=== PATIENT | female | born 1985 | race Hispanic/Latino ===

== ENCOUNTER 2024-05-04 18:30 | Emergency (ER) | payer OTHER ==
[2024-05-04 18:58] LABS: Absolute Lymphocytes (CBC) 1.2 K/uL (0.7-4.9); Absolute Monocytes 0.3 K/uL (0.1-1.3); Absolute Neutrophil 6.2 K/uL (1.8-8.0); Basophils % 0.5 % (0-1.3); Eosinophils % 0.4 % (0-4.4); Hematocrit 30.2 % (36.0-45.0); Hemoglobin 8.9 g/dL (12.0-15.0); Lymphocytes % 15.3 % (15.3-44.8); MCH 21.8 pg (27.0-35.0); MCHC 29.4 g/dL (32.0-36.0); MCV 74.1 fL (80-100); MPV 7.6 fL (7.6-11.3); Monocytes % 3.3 % (3.3-12.3); Neutrophils % 80.5 % (41.7-73.7); Platelets 409 thou/uL (152-406); RBC Red Blood Cell Count 4.08 M/uL (3.86-4.86)
[2024-05-04] MEDS ORDERED: LORazepam 2 MG/ML VIAL ONE (18:58)
[2024-05-04] MEDS ORDERED: NA CHLORIDE 0.9% 500 ML ONE (18:59)
[2024-05-04] MEDS ORDERED: ASPIRIN 81 MG CHEWABLE TABLET ONE (18:59)
[2024-05-04 19:06] LABS: D-Dimer 0.413 FEUug/mL (0-0.500); PT Prothrombin Time 13.7 SECONDS (9.4-12.5); Protime INR 1.23
[2024-05-04 19:18] LABS: Albumin 3.6 g/dL (3.4-5.0); Albumin/Globulin Ratio 0.8 (1.1-1.8); Bilirubin Direct 0.2 mg/dL (0-0.2); Bilirubin Indirect, Calculated 0.2 mg/dL (0.2-0.8); Bilirubin Total 0.4 mg/dL (0.2-1.0); Globulin 4.5 g/dL (2.3-3.5); Magnesium 1.9 mg/dL (1.6-2.4); Protein, Total 8.1 g/dL (6.4-8.2); Troponin High Sensitivity 7.4 pg/mL (<58.9)
--- NOTE | 2024-05-04 19:41 | RAD REPORT ---
EXAMINATION: ONE VIEW CHEST XR CLINICAL INDICATION: CHEST PAIN TECHNIQUE: Frontal chest projection is submitted. Examination is limited by patient positioning and t echnique. COMPARISON: No prior exam. FINDINGS: The lungs are well inflated and clear. The heart is upper limit of normal in size. No displaced fract ures identified. IMPRESSION: No acute intrathoracic abnormalities.
--- NOTE | 2024-05-04 20:05 | RAD REPORT ---
EXAMINATION: US BILATERAL LOWER EXTREMITY VENOUS DOPPLER CLINICAL INDICATION: PAIN TECHNIQUE: Complete bilateral duplex sonography of the BILATERAL lower extremity veins was performed. The examination included compression for vein patency, color Doppler imaging and flow augmentation in response to distal compression of the distal external iliac, common femoral, femoral, popliteal, t ibial, and great and small saphenous veins. COMPARISON: No prior exam. FINDINGS: Duplex sonography testing of the veins of the BILATERAL lower extremity was performed. Color flow rogers ging shows all veins to be compressible with [id number] color filling. Pulsatile and phasic flow is present within all lower extremity deep and superficial veins examined. IMPRESSION: There is no deep vein or superficial vein thrombosis.
[2024-05-04] MEDS ORDERED: POTASSIUM 25 MEQ EFFERV TAB ONE (20:10)
[2024-05-04 20:13] LABS: Specific Gravity 1.022 (1.005-1.030)
[2024-05-04 20:16] LABS: Specific Gravity 1.022 (1.005-1.030); Sqamous Epithelial 20-50 /HPF (None Seen); Urine Bacteria <20 /HPF (<20); Urine Bilirubin NEGATIVE (Negative); Urine Blood Negative (Negative); Urine Clarity Extremely Turbid (Clear); Urine Color Yellow (Yellow); Urine Crystals Unidentified Few /HPF (None Seen); Urine Culture Reflex Order NOT NEEDED; Urine Glucose NEGATIVE (Negative); Urine Ketones NEGATIVE (Negative); Urine Microscopic Reflex YN ORDER UMIC; Urine Mucus 4+ /HPF (None Seen); Urine Nitrite 2+ (Negative); Urine Protein 1+ (Negative); Urine Urobilinogen Normal (Normal); Urine WBC >50 /HPF (<5); Urine WBC Clump Occasional /HPF (None Seen); Urine Yeast (Budding) Occasional /HPF (None Seen); Urine pH 5.5 (5.0-7.0)
[2024-05-04 20:20] LABS: Anisocytosis 1+; Blood Morphology Comment NOTED (NOT SEEN); Platelet Estimate ADEQ; Poikilocytosis 1+; White Blood Cell Scan OK (OK)
--- NOTE | 2024-05-04 20:35 | ER ---
Nurse's Notes [facility] Name: Lucio Tom Age: 38 yrs Sex: Female : 1985 Arrival Date: 05/04/2024 Time: 18:30 Bed 6 Private MD: Diagnosis: Chest pain, unspecified;Anxiety disorder, unspecified;Obesity, unspecified;Iron deficiency anemia secondary to blood loss (chronic);Iron deficiency anemia, unspecified;Hypokalemia Presentation: 05/04 18:49 Chief complaint: Patient states: Chest pressure x2 days with difficulty breathing. Pain tm6 in right arm. Hands hurting and numb. Coronavirus screen: Client denies travel out of the [place] in the last 14 days. Ebola Screen: Patient negative for fever greater than or equal to 101.5 degrees Fahrenheit, and additional compatible Ebola Virus Disease symptoms Patient denies exposure to infectious person. Patient denies travel to an Ebola-affected area in the 21 days before illness onset. No symptoms or risks identified at this time. Initial Sepsis Screen: Does the patient meet any 2 criteria? RR > 20 per min. No. Patient's initial sepsis screen is negative. Does the patient have a suspected source of infection? No. Patient's initial sepsis screen is negative. Risk Assessment: Do you want to hurt yourself or someone else? Patient reports no desire to harm self or others. Onset of symptoms was May 02, 2024. 18:49 Method Of Arrival: Ambulatory tm6 18:49 Acuity: CYN 3 tm6 Triage Assessment: 18:50 General: Appears distressed, Behavior is cooperative, anxious. Pain: Complains of pain tm6 in chest, right hand, left hand and right arm Pain currently is 4 out of 10 on a pain scale. Pain began 2-3 days ago. EENT: No signs and/or symptoms were reported regarding the EENT system. Neuro: Level of Consciousness is awake, alert, obeys commands, Oriented to person, place, time, situation. Cardiovascular: Reports chest pain, shortness of breath, since x2 days Patient's skin is warm and dry. Respiratory: Reports shortness of breath Airway is patent Respiratory effort is labored, Respiratory pattern is tachypnea. GI: No signs and/or symptoms were reported involving the gastrointestinal system. Abdomen is round. : No signs and/or symptoms were reported regarding the genitourinary system. Derm: No signs and/or symptoms reported regarding the dermatologic system. Musculoskeletal: Reports pain in chest, right hand, left hand and right arm. 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 - Infectious Disease History:: Denies. - Social history:: Smoking status: Patient denies any tobacco usage or history of. Screenin:50 [facility] ED Fall Risk Assessment (Adult) History of falling in the last 3 months, kc6 including since admission No falls in past 3 months (0 pts) Confusion or Disorientation No (0 pts) Intoxicated or Sedated No (0 pts) Impaired Gait No (0 pts) Mobility Assist Device Used No (0 pt) Altered Elimination No (0 pt) Score/Fall Risk Level 0 - 2 = Low Risk Oriented to surroundings, Maintained a safe environment, Educated pt \T\ family on fall prevention, incl call for assistance when getting out of bed. Abuse screen: Denies threats or abuse. Denies injuries from another. Nutritional screening: No deficits noted. Tuberculosis screening: No symptoms or risk factors identified. Assessment: 18:50 General: Appears in no apparent distress. uncomfortable, well groomed, well developed, kc6 Behavior is cooperative, anxious, crying, restless. Pain: Complains of pain in left hand and right hand and chest Pain does not radiate. Pain began 2-3 days ago. Is intermittent, Noted to be crying. Neuro: Level of Consciousness is awake, alert, obeys commands, Oriented to person, place, time, situation, Appropriate for age Reports paresthesias in right hand and left hand. Cardiovascular: Reports chest pain, shortness of breath, Heart tones S1 S2 present Capillary refill < 3 seconds Rhythm is sinus rhythm. Respiratory: Airway is patent Trachea midline Respiratory effort is even, with nasal flaring, Respiratory pattern is symmetrical, hyperventilation. GI: No signs and/or symptoms were reported involving the gastrointestinal system. : No signs and/or symptoms were reported regarding the genitourinary system. EENT: No signs and/or symptoms were reported regarding the EENT system. Derm: No signs and/or symptoms reported regarding the dermatologic system. Skin is intact, is healthy with good turgor, Skin is pink, warm \T\ dry. Musculoskeletal: No signs and/or symptoms reported regarding the musculoskeletal system. Circulation, motion, and sensation intact. Capillary refill < 3 seconds, Range of motion: intact in all extremities. 20:30 Reassessment: Patient appears in no apparent distress at this time. Patient and/or al5 family updated on plan of care and expected duration. Pain level reassessed. Patient is alert, oriented x 3, equal unlabored respirations, skin warm/dry/pink. states she feels a little better, feels less anxious. Vital Signs: 18:49 BP 119 / 79; Pulse 74; Resp 25; Temp 98.9(O); Pulse Ox 100% on R/A; MAP 90 mmHg; Weight tm6 114.76 kg; Height 5 ft. 5 in. ; Pain 4/10; 19:00 BP 122 / 64; Pulse 63; Resp 25; Pulse Ox 99% on R/A; al5 20:23 BP 135 / 68; Pulse 62; Resp 15; Pulse Ox 99% on R/A; al5 18:49 Body Mass Index 42.10 (114.76 kg, 165.1 cm) tm6 18:49 Pain Scale: Adult tm6 ED Course: 18:32 Patient arrived in ED. ra3 18:40 Bishnu Otero MD is Attending Physician. aundrea 18:40 Arm band placed on. EKG completed in triage. Results shown to . kc6 18:50 Triage completed. tm6 18:56 Patient has correct armband on for positive identification. Placed in gown. Bed in low kc6 position. Call light in reach. Side rails up X2. airline counter agent on. Pulse ox on. NIBP on. Door closed. Noise minimized. Lights dimmed. Pillow given. 18:56 Inserted saline lock: 18 gauge in right antecubital area, using aseptic technique. kc6 Blood collected. Flushed with 10 mL NS. Patient maintains SpO2 saturation greater than 95% on room air. 19:00 Report given to TARA Estrada \T\ TARA Kamara. kc6 19:37 XRAY Chest (1 view) In Process Unspecified. EDMS 19:57 US Extremity Venous W Compression Renaldo In Process Unspecified. EDMS 20:21 Natalie Amezcua, TARA is Primary Nurse. al5 20:29 CT Chest For PE Angio In Process Unspecified. EDMS 20:34 Ivan Cervantes MD is Referral Physician. cp 20:34 Bladimir Hurd MD is Referral Physician. cp 20:52 Provided Education on: chest pain and anxiety. cp4 20:52 No provider procedures requiring assistance completed. intact, bleeding controlled, No cp4 redness/swelling at site. Pressure dressing applied. Administered Medications: 19:04 Not Given (Physician Discretion): aspirinchewable tablet 324 mg PO once; 81 mg tablets kc6 x 4 19:05 Drug: NS 0.9% IV 500 ml 500 ml IV at 1 bolus once; to be given as a bolus over 30 kc6 minutes Volume: 500 ml; Route: IV; Rate: 1 bolus; Site: right antecubital; 20:53 Follow up: IV Status: Infusion continued cp4 19:05 Drug: Ativan IVP 1 mg IVP once Route: IVP; Site: right antecubital; kc6 20:53 Follow up: Response: No adverse reaction cp4 19:05 Drug: Aspirin PO Chewable Tablet 81 mg PO once Route: PO; kc6 20:53 Follow up: Response: No adverse reaction cp4 19:44 Not Given (Duplicate Order): potassiumeffervescent tablet 50 meq PO once; dissolve in 4 al5 ounces of water or juice 20:32 Drug: Potassium PO Effervescent Tablet 50 mEq PO once; dissolve in 4 ounces of water or al5 juice Route: PO; 20:54 Follow up: Response: No adverse reaction cp4 20:50 Not Given (Patient Refused): ativan1 mg IVP once; repeat if needed cp4 20:50 Drug: Potassium PO Effervescent Tablet 25 mEq PO once; dissolve in 4 ounces of water or cp4 juice, give prior to DC Route: PO; 20:54 Follow up: Response: No adverse reaction cp4 Medication: 20:52 VIS not applicable for this client. cp4 Outcome: 20:34 Discharge ordered by . cp 20:52 Discharged to home ambulatory, cp4 20:52 Condition: stable 20:52 Discharge instructions given to patient, Instructed on discharge instructions, follow up and referral plans. medication usage, Demonstrated understanding of instructions, follow-up care, medications, Prescriptions given X 4, 20:53 Patient left the ED. cp4 Signatures: Dispatcher [employer] EDBishnu Harris MD MD cha Page, Corey, PA Sophy Ortega cp, RN RN kc6 Dannielle Birch cp4 Soy Perez RN RN tm6 Courtney Michael 3 Natalie Amezcua RN RN al5
--- NOTE | 2024-05-04 20:35 | EDPHYS ---
Physician Documentation [facility] Name: Lucio Tom Age: 38 yrs Sex: Female : 1985 Arrival Date: 05/04/2024 Time: 18:30 Bed 6 Private MD: TOMMY Physician Bishnu Otero HPI: 05/04 18:50 This 38 yrs old Female presents to ER via Ambulatory with complaints of Chest aundrea Pressure. 18:50 The patient or guardian reports chest pain that is located primarily in the anterior aundrea chest wall, bilaterally. The pain does not radiate. Associated signs and symptoms: The patient has no apparent associated signs or symptoms. The chest pain is described as a pressure, squeezing. Duration: The patient or guardian reports multiple episodes, with no pattern. Modifying factors: The symptoms are alleviated by nothing. the symptoms are aggravated by emotionally stressful situations, palpation of area. Severity of pain: At its worst the pain was mild in the emergency department the pain is unchanged. The patient has not experienced similar symptoms in the past. 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 - Infectious Disease History:: Denies. - Social history:: Smoking status: Patient denies any tobacco usage or history of. ROS: 18:50 Constitutional: Negative for fever, chills, and weight loss, Eyes: Negative for injury, aundrea pain, redness, and discharge, ENT: Negative for injury, pain, and discharge, Neck: Negative for injury, pain, and swelling, Cardiovascular: Negative for chest pain, palpitations, and edema, Respiratory: Negative for shortness of breath, cough, wheezing, and pleuritic chest pain, Abdomen/GI: Negative for abdominal pain, nausea, vomiting, diarrhea, and constipation, Back: Negative for injury and pain, : Negative for injury, bleeding, discharge, and swelling, MS/Extremity: Negative for injury and deformity, Skin: Negative for injury, rash, and discoloration, Neuro: Negative for headache, weakness, numbness, tingling, and seizure, Psych: Negative for depression, anxiety, suicide ideation, homicidal ideation, and hallucinations, Allergy/Immunology: Negative for hives, rash, and allergies, Endocrine: Negative for neck swelling, polydipsia, polyuria, polyphagia, and marked weight changes, Hematologic/Lymphatic: Negative for swollen nodes, abnormal bleeding, and unusual bruising, Exam: 18:50 Constitutional: This is a well developed, well nourished patient who is awake, alert, aundrea and in no acute distress. Head/Face: Normocephalic, atraumatic. Eyes: Pupils equal round and reactive to light, extra-ocular motions intact. Lids and lashes normal. Conjunctiva and sclera are non-icteric and not injected. Cornea within normal limits. Periorbital areas with no swelling, redness, or edema. ENT: Nares patent. No nasal discharge, no septal abnormalities noted. Tympanic membranes are normal and external auditory canals are clear. Oropharynx with no redness, swelling, or masses, exudates, or evidence of obstruction, uvula midline. Mucous membranes moist. Neck: Trachea midline, no thyromegaly or masses palpated, and no cervical lymphadenopathy. Supple, full range of motion without nuchal rigidity, or vertebral point tenderness. No Meningismus. Chest/axilla: Normal chest wall appearance and motion. Nontender with no deformity. No lesions are appreciated. Cardiovascular: Regular rate and rhythm with a normal S1 and S2. No gallops, murmurs, or rubs. Normal PMI, no JVD. No pulse deficits. Respiratory: Lungs have equal breath sounds bilaterally, clear to auscultation and percussion. No rales, rhonchi or wheezes noted. No increased work of breathing, no retractions or nasal flaring. Abdomen/GI: Soft, non-tender, with normal bowel sounds. No distension or tympany. No guarding or rebound. No evidence of tenderness throughout. Back: No spinal tenderness. No costovertebral tenderness. Full range of motion. Skin: Warm, dry with normal turgor. Normal color with no rashes, no lesions, and no evidence of cellulitis. MS/ Extremity: Pulses equal, no cyanosis. Neurovascular intact. Full, normal range of motion., bilateral aka Neuro: Awake and alert, GCS 15, oriented to person, place, time, and situation. Cranial nerves II-XII grossly intact. Motor strength 5/5 in all extremities. Sensory grossly intact. Cerebellar exam normal. Normal gait. Psych: Awake, alert, with orientation to person, place and time. Behavior, mood, and affect are within normal limits. 18:50 ECG was reviewed by the Attending Physician. Vital Signs: 18:49 BP 119 / 79; Pulse 74; Resp 25; Temp 98.9(O); Pulse Ox 100% on R/A; MAP 90 mmHg; Weight tm6 114.76 kg; Height 5 ft. 5 in. ; Pain 4/10; 19:00 BP 122 / 64; Pulse 63; Resp 25; Pulse Ox 99% on R/A; al5 20:23 BP 135 / 68; Pulse 62; Resp 15; Pulse Ox 99% on R/A; al5 18:49 Body Mass Index 42.10 (114.76 kg, 165.1 cm) tm6 18:49 Pain Scale: Adult tm6 MDM: 18:40 Medical Screening Exam initiated aundrea 18:52 Differential diagnosis: abnormal EKG, acute myocardial infarction, acute pericarditis, aundrea anxiety, coronary artery disease chest wall pain, Cholelithiasis costochondritis, esophagitis, hiatal hernia, mitral valve prolapse, peptic ulcer disease, pneumonia, pneumothorax, pulmonary embolus, stable angina, thoracic aortic disection, unstable angina. HEART Score: History: Slightly Suspicious (0), ECG: Non specific repolarization disturbance / LBTB / PM (1), Age: < or = 45 years (0), Risk Factors: > or = 3 Risk factors for atherosclerotic disease (2), [Hypercholesterolemia] [Hypertension] [+ Family HX] [Obesity] Troponin: < or = 1 x Normal Limit (0), Total Score = 3. Data reviewed: vital signs, nurses notes, lab test result(s), EKG, radiologic studies, plain films. Consideration of Admission/Observation Escalation of care including admission/observation considered. I considered the following discharge prescriptions or medication management in the emergency department Medications were administered in the Emergency Department. See MAR. Independent interpretation of the following test(s) in the Emergency Department EKG: See my EKG interpretation above. Test considered but Not performed:. 05/04 18:41 Order name: Basic Metabolic Panel; Complete Time: 19:20 [facility] 05/04 18:41 Order name: CBC with Diff; Complete Time: 20:33 [facility] 05/04 20:33 Interpretation: Normal except: HGB 8.9; HCT 30.2; MCV 74.1; MCH 21.8; MCHC 29.4; PLT cp 409; RDW 22.0; YOLANDA% 80.5. 05/04 18:41 Order name: D-Dimer; Complete Time: 19:17 [facility] 05/04 18:41 Order name: LFT's; Complete Time: 19:20 [facility] 05/04 18:41 Order name: Magnesium; Complete Time: 19:20 [facility] 05/04 18:41 Order name: NT PRO-BNP; Complete Time: 19:20 [facility] 05/04 18:41 Order name: PT-INR; Complete Time: 19:17 [facility] 05/04 18:41 Order name: Troponin HS; Complete Time: 19:20 [facility] 05/04 18:41 Order name: Lipase; Complete Time: 19:20 [facility] 05/04 18:41 Order name: Urinalysis w/ reflexes; Complete Time: 20:18 [facility] 05/04 20:19 Interpretation: Normal except: [facility] Extremely Turbid; UPROT 1+; UNIT 2+; UESTR 500; cp UWBC >50; URBC 11-20; SQEPI 20-50; MUCUS 4+; UWBC Clump Occasional; BYST Occasional. 05/04 18:41 Order name: PREGU; Complete Time: 20:18 [facility] 05/04 20:21 Order name: CBC Smear Scan; Complete Time: 20:33 EDMS 05/04 18:41 Order name: XRAY Chest (1 view); Complete Time: 20:01 [facility] 05/04 19:18 Order name: CT Chest For PE Angio [facility] 05/04 19:18 Order name: US Extremity Venous W Compression Renaldo; Complete Time: 20:18 [facility] 05/04 18:41 Order name: Cardiac monitoring; Complete Time: 18:56 [facility] 05/04 18:41 Order name: EKG - Nurse/Tech; Complete Time: 18:56 [facility] 05/04 18:41 Order name: IV Saline Lock; Complete Time: 18:56 [facility] 05/04 18:41 Order name: Labs collected and sent; Complete Time: 18:56 [facility] 05/04 18:41 Order name: O2 Per Protocol; Complete Time: 18:56 [facility] 05/04 18:41 Order name: O2 Sat Monitoring; Complete Time: 18:56 aundrea 05/04 19:21 Order name: PO challenge: juice; Complete Time: 20:32 aundrea EC:50 Rate is 76 beats/min. Rhythm is regular. QRS [place] is Normal. RI interval is normal. QT aundrea interval is normal. No Q waves. T waves are Normal. Clinical impression: Normal ECG and No evidence of ischemia. Interpreted by me. Reviewed by me. Administered Medications: 19:04 Not Given (Physician Discretion): aspirinchewable tablet 324 mg PO once; 81 mg tablets kc6 x 4 19:05 Drug: NS 0.9% IV 500 ml 500 ml IV at 1 bolus once; to be given as a bolus over 30 kc6 minutes Volume: 500 ml; Route: IV; Rate: 1 bolus; Site: right antecubital; 20:53 Follow up: IV Status: Infusion continued cp4 19:05 Drug: Ativan IVP 1 mg IVP once Route: IVP; Site: right antecubital; kc6 20:53 Follow up: Response: No adverse reaction cp4 19:05 Drug: Aspirin PO Chewable Tablet 81 mg PO once Route: PO; kc6 20:53 Follow up: Response: No adverse reaction cp4 19:44 Not Given (Duplicate Order): potassiumeffervescent tablet 50 meq PO once; dissolve in 4 al5 ounces of water or juice 20:32 Drug: Potassium PO Effervescent Tablet 50 mEq PO once; dissolve in 4 ounces of water or al5 juice Route: PO; 20:54 Follow up: Response: No adverse reaction cp4 20:50 Not Given (Patient Refused): ativan1 mg IVP once; repeat if needed cp4 20:50 Drug: Potassium PO Effervescent Tablet 25 mEq PO once; dissolve in 4 ounces of water or cp4 juice, give prior to DC Route: PO; 20:54 Follow up: Response: No adverse reaction cp4 Disposition Summary: 05/04/24 20:34 Discharge Ordered Notes: Location: Home cp Problem: new cp Symptoms: have improved cp Condition: Stable cp Diagnosis - Chest pain, unspecified cp - Anxiety disorder, unspecified cp - Obesity, unspecified cp - Iron deficiency anemia secondary to blood loss (chronic) cp - Iron deficiency anemia, unspecified cp - Hypokalemia cp Followup: aundrea - With: Private Physician - When: 2 - 3 days - Reason: Recheck today's complaints, Continuance of care, Re-evaluation by your physician Followup: aundrea - With: Ivan Cervantes MD - When: 2 - 3 days - Reason: Recheck today's complaints, Re-evaluation by your physician Followup: aundrea - With: Bladimir Hurd MD - When: 2 - 3 days - Reason: Recheck today's complaints, Re-evaluation by your physician Discharge Instructions: - Discharge Summary Sheet aundrea - Iron Deficiency Anemia, Adult aundrea - Anemia aundrea - Nonspecific Chest Pain, Adult aundrea - Iron-Rich Diet aundrea - Potassium Content of Foods aundrea - Obesity, Adult aundrea - Nonspecific Chest Pain, Adult, [id number] aundrea - Aspirin and Your Heart aundrea - Hypokalemia aundrea - Supporting Someone With Anxiety aundrea - Managing Anxiety, Adult aundrea Forms: - Medication Reconciliation Form cp - Antibiotic Education cp - Prescription Opioid Use cp - Patient Portal Instructions cp - Leadership Thank You Letter cp Prescriptions: - Ferrous Sulfate 325 mg (65 mg Iron) Oral Tablet - take 1 tablet ORAL route every 8 hours; 90 tablet; Refills: 0, Product aundrea Selection Permitted - Hydroxyzine HCl 25 mg Oral Tablet - take 1 tablet ORAL route every 6 hours As needed; 30 tablet; Refills: 0, [facility] Product Selection Permitted - Pepcid 20 mg Oral tablet - take 1 tablet ORAL route every 12 hours for 21 days; 42 tablet; Refills: 0, [facility] Product Selection Permitted - Potassium Chloride 20 meq Oral Packet - take 1 packet ORAL route once daily 1 packet in 6 (six) ounces of water or aundrea juice; Take after meal; 20 packet; Refills: 0, Product Selection Permitted Signatures: Dispatcher [employer] EDBishnu Harris MD MD cha Nieto, Roman, MD MD rn Page, Corey, PA PA cp Sophy Vilchis RN RN kc6 Dannielle Birch cp4 Soy Perez RN RN tm6 Natalie Amezcua RN RN al5 Corrections: (The following items were deleted from the chart) 18:42 18:41 BASIC METABOLIC PANEL+C.LAB.BRZ ordered. EDMS EDMS 18:42 18:41 CBC+H.LAB.BRZ ordered. EDMS EDMS 18:42 18:41 D-DIMER+COAG.LAB.BRZ ordered. EDMS EDMS 18:42 18:41 HEPATIC FUNCTION+C.LAB.BRZ ordered. EDMS EDMS 18:42 18:41 MAGNESIUM+C.LAB.BRZ ordered. EDMS EDMS 18:42 18:41 PROBNP+C.LAB.BRZ ordered. EDMS EDMS 18:42 18:41 PROTIME (+INR)+COAG.LAB.BRZ ordered. EDMS EDMS 18:42 18:41 Troponin High Sensitivity+C.LAB.BRZ ordered. EDMS EDMS 18:42 18:41 LIPASE+C.LAB.BRZ ordered. EDMS EDMS 18:42 18:41 Urinalysis+U.LAB.BRZ ordered. EDMS EDMS 18:42 18:41 Test, Urine+UC.LAB.BRZ ordered. EDMS EDMS 18:42 18:42 Chest Single View+RAD.RAD.BRZ ordered. EDMS EDMS 19:19 19:19 Chest For PE Angio+CT.RAD.BRZ ordered. EDMS EDMS 19:19 19:19 Extrem Venous W Compression Renaldo+US.RAD.BRZ ordered. EDMS EDMS
--- NOTE | 2024-05-04 20:38 | RAD REPORT ---
EXAMINATION: CTA CHEST PE CLINICAL INDICATION: Chest pain;Dyspnea TECHNIQUE: This examination was performed according to an angiographic protocol with 3D post-processi ng. This involves 3D reconstructions, MIPs, volume rendered images and/or shaded surface rendering. One or more of the following dose reduction techniques were used: Automated exposure control, adjustm ent of the mA and/or kV according to patient size, and/or iterative reconstruction. Unless otherwise specified, incidental findings do not require dedicated imaging follow-up. COMPARISON: No prior exam. FINDINGS: PULMONARY ARTERIES: Normal caliber. No evidence of pulmonary emboli to the subsegmental level. THORACIC AORTA: Normal caliber and configuration. LUNGS: No evidence of airspace or interstitial process. No nodules. PLEURA: No pleural effusion. No pneumothorax. MEDIASTINUM AND LYMPH NODES: No mediastinal mass or fluid collection. Normal size mediastinal, hilar, and axillary lymph nodes. OSSEOUS STRUCTURES AND CHEST WALL: Intact. UPPER ABDOMEN: No significant abnormalities. IMPRESSION: No evidence of pulmonary emboli to the subsegmental level.
[2024-05-04 21:02] VITALS: TEMP 98.9
[2024-05-04 21:13] VITALS: O2SAT 99
[2024-05-04 21:19] VITALS: BP 135/68
--- NOTE | 2024-05-05 11:08 | EKG ---
Test Date: 2024-05-04 Test Time: 18:40:44 [employer] Repairer: TM MEASUREMENT RESULTS: Intervals: Rate: 76 W[place]: 138 QRSD: 86 QT: 394 QTc: 443 [place]: P: 44 W[place]: 138 QRS: 94 T: 37 INTERPRETIVE STATEMENTS: Normal sinus rhythm with sinus arrhythmia Normal ECG No previous ECG available for comparison Electronically Signed On 05-05-24 11:06:55 [employer] by Maurice Mcclendon
== END 2024-05-04 20:53 | disposition home or self-care (01) ==
LOC: ER 18:30
DX: F41.9 Anxiety disorder, unspecified (principal); D50.0 Iron deficiency anemia secondary to blood loss (chronic); E87.6 Hypokalemia; E66.9 Obesity, unspecified
CPT/HCPCS: 96361; 93005; 85025; 81001; 80048; 36415; 83735; 81025; 85610; 85379; 80076; 84484; 83690; 83880; 71275; 71045; 93970; 96374; 99285; Q9967; J7040